=== PATIENT | female | born 2000 | race Caucasian/White ===

== ENCOUNTER 2022-07-07 10:43 | Inpatient (IN) | payer BC ==
[2022-07-07] VITALS (12 sets, daily range): BP systolic 93–119; BP diastolic 56–81
[~2022-07-07] VITALS: Ht 149.9 cm; Wt 50.0 kg
[2022-07-07] MEDS ORDERED: morphine 4 MG/ML inj SYRINge IV ONE (13:15)
[2022-07-07] MEDS ORDERED: ondansetron/PF 4mg/2ml inj IV ONE (13:15)
[2022-07-07 13:45] LABS: BASOPHILS # (AUTO) 0.1 X10'3 (0-0.2); BASOPHILS % (AUTO) 0.6 % (0-1); EOSINOPHILS # (AUTO) 0.2 X10'3 (0-0.9); EOSINOPHILS % (AUTO) 2.5 % (0-6); HEMATOCRIT 34.4 % (35.0-45.0); HEMOGLOBIN 11.8 g/dl (12.0-16.0); LYMPHOCYTES # (AUTO) 2.7 X10'3 (1.1-4.8); LYMPHOCYTES % (AUTO) 28.1 % (21-51); MEAN CORPUSCULAR HEMOGLOBIN 30.7 PG (27.0-31.0); MEAN CORPUSCULAR HGB CONC 34.2 g/dL (33.0-36.5); MEAN CORPUSCULAR VOLUME 89.7 FL (78-98); MEAN PLATELET VOLUME 8.9 FL (7.4-10.4); MONOCYTES # (AUTO) 0.8 X10'3 (0-0.9); MONOCYTES % (AUTO) 8.5 % (2-12); NEUTROPHILS # (AUTO) 5.9 X10'3 (1.8-7.7); NEUTROPHILS % (AUTO) 60.3 % (42-75); PLATELET COUNT 351 X10'3 (140-440); RED BLOOD COUNT 3.84 X10'6 (4.20-5.60); RED CELL DISTRIBUTION WIDTH 13.9 % (11.5-14.5); WHITE BLOOD COUNT 9.7 X10'3 (4.5-11.0)
[2022-07-07 14:06] LABS: ALANINE AMINOTRANSFERASE 64 U/L (12-78); ALBUMIN 3.2 G/DL (3.4-5.0); ALBUMIN/GLOBULIN RATIO 1.1 (1.1-1.5); ALKALINE PHOSPHATASE 60 IU/L (46-116); ANION GAP 10 (8-16); ASPARTATE AMINO TRANSFERASE 41 U/L (10-37); BILIRUBIN,TOTAL 0.5 MG/DL (0.1-1.0); BLOOD UREA NITROGEN 7 MG/DL (7-18); BUN/CREATININE RATIO 10.9 (6.6-38.0); CALCIUM 7.9 MG/DL (8.5-10.1); CHLORIDE 110 MMOL/L (99-107); CREATININE 0.64 MG/DL (0.40-0.90); GLUCOSE 78 MG/DL (70-104); POTASSIUM 3.6 MMOL/L (3.5-5.1); SODIUM 146 MMOL/L (135-145); TOTAL CARBON DIOXIDE 25.7 MMOL/L (24-32); eGFR > 90 ML/MIN
[2022-07-07] MEDS ORDERED: mag hydrox/Alum hydrox/simeth 30ml oral suspension PO PRN (14:40)
[2022-07-07] MEDS ORDERED: morphine 2 MG/ML inj. syringe IV PRN ×2 (14:40→17:45)
[2022-07-07] MEDS ORDERED: diphenhydrAMINE 25mg capsule PO PRN (14:40)
[2022-07-07] MEDS ORDERED: acetaminophen 325mg tablet PO PRN ×2 (14:40)
[2022-07-07] MEDS ORDERED: magnesium 2GM in 50ml NS 50 ML IV PRN (14:40)
[2022-07-07] MEDS ORDERED: magnesium 4gm in 100ml NS 100 ML IV PRN (14:40)
[2022-07-07] MEDS ORDERED: HYDROcodone/acetaminophen 5mg/325mg tablet PO PRN (14:40)
[2022-07-07] MEDS ORDERED: POTASSIUM BICARB 20meq eff tab 20 MEQ TABLET.EFF PO PRN ×2 (14:40)
[2022-07-07] MEDS ORDERED: potassium CL 10mEq/100ml bag 100 ML IV PRN (14:40)
[2022-07-07] MEDS ORDERED: magnesium hydroxide 30ml (MOM) UD suspension PO PRN (14:40)
[2022-07-07] MEDS ORDERED: magnesium Cl slow-release 64mg tablet PO PRN (14:40)
[2022-07-07] MEDS ORDERED: ondansetron/PF 4mg/2ml inj IV PRN ×3 (14:40→20:55)
[2022-07-07] MEDS ORDERED: bisacodyl 10mg suppository rectal RC PRN (14:40)
[2022-07-07 15:11] LABS: HEMOGLOBIN A1C 5.2 % (4.5-6.2)
[2022-07-07] MEDS: normal saline 1000ml 1,000 ML IV SCH ×2 (15:56→22:40)
[2022-07-07] MEDS: CefTRIAXone/D5W-Rocephin 1gm 50 ML IV SCH (15:56)
--- NOTE | 2022-07-07 16:09 | NUR ---
Patient in room ED 10. I have received report from Roni in the ED and had the opportunity to ask questions and assume patient care.
[2022-07-07] MEDS: morphine 2 MG/ML inj. syringe IV PRN ×2 (16:49→22:35)
[2022-07-07] MEDS: metroNIDAZOLE-Flagyl 500mg/NS 100 ML IV SCH (16:49)
[2022-07-07] MEDS ORDERED: ringers solution, lacted 1,000 ML IV SCH (17:45)
[2022-07-07] MEDS ORDERED: hydrALAZINE 20mg/ml inj. IV PRN (17:45)
[2022-07-07] MEDS ORDERED: fentaNYL/PF 50MCG/1 ML 2ML syringe IV PRN (17:45)
[2022-07-07] MEDS ORDERED: labetalol 20mg/4ml (5mg/ml) syringe IV PRN (17:45)
[2022-07-07] MEDS ORDERED: midazolam 1 mg/ML 2ml injection ONE (17:50)
[2022-07-07] MEDS ORDERED: meperidine/PF 50mg/ml syringe ONE (17:50)
[2022-07-07] MEDS ORDERED: rocuronium 10mg/ml inj IV ONE (17:51)
[2022-07-07] MEDS ORDERED: ondansetron/PF 4mg/2ml inj ONE (17:52)
[2022-07-07] MEDS ORDERED: propofol inj 20 ML IV ONE (17:52)
[2022-07-07] MEDS ORDERED: LIDOcaine 2% (20mg/ml) 5ml vial ONE (17:52)
[2022-07-07] MEDS ORDERED: glycopyrrolate 0.2mg/ml inj ONE (17:53)
--- NOTE | 2022-07-07 18:29 | NUR ---
Problems reprioritized. Patient report given, questions answered & plan of care reviewed with Erlinda Khan
[2022-07-07] MEDS: K and/or MAG REPLACEMENT MC SCH (19:16)
[2022-07-07] MEDS ORDERED: BUPIVAcaine/PF 2.5 mg/ml (0.25%) 30ml vial ONE ×2 (19:19→20:39)
[2022-07-07] MEDS ORDERED: NO HOME MEDS (19:27)
[2022-07-07] MEDS ORDERED: dexamethasone sod phosphate 10mg/ml inj ONE (19:45)
[2022-07-07] MEDS ORDERED: desflurane 240ml liquid inh. IH ONE (19:45)
[2022-07-07] MEDS ORDERED: neostigmine methylsulfate 1 MG/ML 10ml vial ONE (19:45)
[2022-07-07] MEDS: heparin, porcine 5000 units/ml vial SQ SCH (20:00)
[2022-07-07] MEDS: docusate sod 100mg capsule PO SCH (20:00)
[2022-07-07] MEDS ORDERED: naloxone 0.4 mg/ml inj IV PRN (20:55)
[2022-07-07] MEDS ORDERED: iohexol 300 MG/1 ML 10ml vial ONE (21:02)
[2022-07-07] MEDS ORDERED: phenazopyridine 100mg tablet PO PRN (21:45)
[2022-07-07] MEDS ORDERED: oxybutynin 5mg tablet PO PRN (21:45)
--- NOTE | 2022-07-07 21:50 | NUR ---
Received from OR via , accompanied by Anesthesiologist DR SEYMOUR and report given by Anesthesiolgist. PT RESPONDS TO VOICE, MOVES EXT X 4, SKIN WARM AND PINK, SCDS, 4 BA'S ON ABD CD, 18G PIV WITH LR 100ML/HR, MOANIN WITH PAIN AND MORPHINE GIVEN, VSS
[2022-07-07] MEDS: morphine 4 MG/ML inj SYRINge IV PRN ×2 (21:58→22:48)
[2022-07-07] MEDS: fentaNYL/PF 50MCG/1 ML 2ML syringe IV PRN ×2 (22:04→22:25)
[2022-07-07 22:11] LABS: CLARITY,URINE SLIGHTLY CLOUDY (Clear); COLOR,URINE YELLOW (Yellow); GLUCOSE, URINE NEGATIVE (Neg); KETONES,URINE 15 mg/dl (Neg); LEUKOCYTE ESTERASE ,URINE NEGATIVE (Neg); NITRITES, URINE NEGATIVE (Neg); OCCULT BLOOD,URINE LARGE (Neg); PH,URINE 5.5 (4.8-8.0); PROTEIN,URINE NEGATIVE (Neg); UROBILINOGEN,URINE 0.2 E.U/dL (0.2-1.0)
[2022-07-07 22:20] LABS: UA COLLECTION TYPE NON-SPECIFIED
[2022-07-07 22:26] LABS: BACTERIA,URINE FEW /HPF (Neg); MUCUS STRANDS FEW /LPF (Neg); RBC,URINE TNTC /HPF (0-2); SQUAMOUS EPITHELIAL CELL,UR FEW /LPF (FEW); TRANSITIONAL EPI CELLS,URINE FEW /HPF
--- NOTE | 2022-07-07 22:50 | NUR ---
Report called to receiving nurse. Transferred via BED Belongings [NO PERSONAL BELONGINGS IN PACU. Special Issues communicated to receiving nurSE URBANO RIVERO. PT AWAKE, ALERT, MOVING EXT X 4, VSS, IV PATENT, BA'S ON ABD CD, SCDS, PAIN RATING 5/10 BUT MUCH IMPROVED FROM ARRIVAL TO PACU, [place] ICE WATER, PARENTS AT BS, PT MEETS DISCHARGE CRITERIA.
[2022-07-08] VITALS (9 sets, daily range): BP systolic 80–112; BP diastolic 40–70
[2022-07-08] MEDS: metroNIDAZOLE-Flagyl 500mg/NS 100 ML IV SCH ×2 (00:16→07:29)
[2022-07-08] MEDS: morphine 2 MG/ML inj. syringe IV PRN (02:30)
--- NOTE | 2022-07-08 06:22 | NUR ---
Problems reprioritized. Patient report given, questions answered & plan of care reviewed with MAT De La Rosa.
[2022-07-08 06:35] LABS: BASOPHILS % (AUTO) 0.1 % (0-1); EOSINOPHILS % (AUTO) 0 % (0-6); HEMATOCRIT 34.6 % (35.0-45.0); HEMOGLOBIN 11.6 g/dl (12.0-16.0); LYMPHOCYTES # (AUTO) 0.8 X10'3 (1.1-4.8); LYMPHOCYTES % (AUTO) 6.2 % (21-51); MEAN CORPUSCULAR HGB CONC 33.6 g/dL (33.0-36.5); MEAN CORPUSCULAR VOLUME 89.3 FL (78-98); MEAN PLATELET VOLUME 8.7 FL (7.4-10.4); MONOCYTES # (AUTO) 0.4 X10'3 (0-0.9); MONOCYTES % (AUTO) 2.8 % (2-12); NEUTROPHILS # (AUTO) 11.5 X10'3 (1.8-7.7); NEUTROPHILS % (AUTO) 90.9 % (42-75); PLATELET COUNT 346 X10'3 (140-440); RED BLOOD COUNT 3.87 X10'6 (4.20-5.60); RED CELL DISTRIBUTION WIDTH 13.8 % (11.5-14.5); WHITE BLOOD COUNT 12.6 X10'3 (4.5-11.0)
[2022-07-08 07:01] LABS: ALANINE AMINOTRANSFERASE 66 U/L (12-78); ALBUMIN 3.2 G/DL (3.4-5.0); ALBUMIN/GLOBULIN RATIO 1.1 (1.1-1.5); ALKALINE PHOSPHATASE 59 IU/L (46-116); ANION GAP 14 (8-16); ASPARTATE AMINO TRANSFERASE 44 U/L (10-37); BILIRUBIN,TOTAL 0.6 MG/DL (0.1-1.0); BLOOD UREA NITROGEN 3 MG/DL (7-18); BUN/CREATININE RATIO 5.2 (6.6-38.0); CHLORIDE 105 MMOL/L (99-107); CHOL/HDL RATIO 2.4 (0.00-4.99); CHOLESTEROL 112 MG/DL (0-200); CREATININE 0.58 MG/DL (0.40-0.90); GLUCOSE 112 MG/DL (70-104); HDL CHOLESTEROL 47 MG/DL (35-60); LDL CHOLESTEROL 55 MG/DL (50-100); MAGNESIUM 1.8 MG/DL (1.5-2.4); PHOSPHORUS 3.9 MG/DL (2.3-4.5); POTASSIUM 3.7 MMOL/L (3.5-5.1); SODIUM 141 MMOL/L (135-145); TOTAL CARBON DIOXIDE 22.2 MMOL/L (24-32); TRIGLYCERIDES 43 MG/DL (20-135); eGFR > 90 ML/MIN
[2022-07-08] MEDS: HYDROcodone/acetaminophen 10/325mg tab PO PRN ×2 (07:40→13:19)
[2022-07-08] MEDS: docusate sod 100mg capsule PO SCH (07:41)
[2022-07-08] MEDS: K and/or MAG REPLACEMENT MC SCH (07:43)
[2022-07-08] MEDS: heparin, porcine 5000 units/ml vial SQ SCH (07:58)
[2022-07-08] MEDS: CefTRIAXone/D5W-Rocephin 1gm 50 ML IV SCH (10:04)
[2022-07-08] MEDS: normal saline 1000ml 1,000 ML IV SCH (13:18)
[2022-07-08] MEDS ORDERED: LACT1CAP26 PO (14:20)
[2022-07-08] MEDS ORDERED: CEFD300C3 PO (14:20)
[2022-07-08] MEDS ORDERED: METR-159 PO (14:20)
[2022-07-08] MEDS ORDERED: HYDR-3965 PO ×2 (14:20→15:52)
--- NOTE | 2022-07-08 16:00 | NUR ---
DC meds transmitted to [facility] [place], but pt's mom stated they close at 5, are closed tomorrow (Sunday), and w/ construction they wont be there in time and [facility] [place] [address], but MD would need to re-transmit the [place] [facility]. Dr. Lucio agreed.
--- NOTE | 2022-07-08 18:45 | NUR ---
At approx 1730 the pt's Mom, Mery, ([phone]) phoned to report they had arrived at [facility] [address] at 5 pm as that pharmacy was closing and the staff refused to dispense the meds at that time. She asked that the prescription again be transferred to another [place] [facility] that was open late. Upon my researching it was discovered that [facility] on the [address] corner of [place] [facility] was apparently the only pharmacy open in [place] until 6 pm. This nurse spoke to the pharmacist there who stated if the family arrived before 6pm and were prepared to pay grimaldo for the antibiotics. He was doubtful due to the multiple changes of pharmacy's and not being able to run the pt's insurance before they closed, that he would be successful. He said he would attempt to dispense them before closing, but also stated that with the multiple transfers of the prescriptions the [place] would not be available tonight. He also said the family could buy the Culturell OTC. I notified Elizabeth, [facility] [employer], of the scenario, but was unable to reach Dr. Lucio. I contacted Mery, and she stated they'd attempt to get to [facility] in time. I suggested they call to the [facility] in [place] in the morning to determine if they could p/u the [place]. I phoned Mery for an update at 1840 and spoke to the pt who said they were able to get the Abx and Culturell, but not the [place]. I suggested they phone [facility] [address] tomorrow to assess if the [place] would be available in [place] before coming to pick it up from [place].
== END 2022-07-08 16:15 | disposition home or self-care (01) | DRG 418 ==
LOC: ER 10:46 → ED HOLD 14:45 → ORTHO 4S 16:20 → PACU 18:59 → ORTHO 4S 22:55
PROVIDERS: ADMIT Family Medicine; ATTEND Family Medicine
PROC: BT1D1ZZ Fluoroscopy of Right Kidney, Ureter and Bladder using Low Osmolar Contrast (ICD-10-PCS; 2022-07-07)
PROC: 0FT44ZZ Resection of Gallbladder, Percutaneous Endoscopic Approach (ICD-10-PCS; principal; 2022-07-07 19:45)
PROC: 0T768DZ Dilation of Right Ureter with Intraluminal Device, Via Natural or Artificial Opening Endoscopic (ICD-10-PCS; 2022-07-07 19:45)
DX: K80.01 Calculus of gallbladder with acute cholecystitis with obstruction (principal); N13.2 Hydronephrosis with renal and ureteral calculous obstruction; F12.90 Cannabis use, unspecified, uncomplicated; E86.0 Dehydration; R79.89 Other specified abnormal findings of blood chemistry; J45.909 Unspecified asthma, uncomplicated; Z20.822 Contact with and (suspected) exposure to COVID-19; Z80.49 Family history of malignant neoplasm of other genital organs; Z82.49 Family history of ischemic heart disease and other diseases of the circulatory system
CPT/HCPCS: 96374; 99285; Z7506; Z7508; 36415; 74420; 76000; 80053; 80061; 81001; 82948; 83036; 83605; 83735; 84100; 84145; 85025; 86885; 86900; 86901; 87040; 87081; 87088; 87635; A4215; A4615; A4618; A6402; A7000; C1758; C1769; C2617; G0378; J0696; J1100; J1644; J2175; J2250; J2270; J2405; J2704; J2710; J3010; J3490; J7030; J7120; Q9967